=== PATIENT | male | born 1975 | race Two or more races ===

== ENCOUNTER 2022-03-06 08:52 | Outpatient (REF) | payer SELFPAY | END 2022-03-06 08:53 | disposition home or self-care (01) | LOC: HO.HOSX 08:52 | PROVIDERS: Visit Provider Physician Assistant | DX: Z13.89 Encounter for screening for other disorder (principal) ==

== ENCOUNTER 2023-02-26 09:59 | Outpatient (AMB) | payer OTHER, SELFPAY ==
--- NOTE | 2023-02-26 10:53 | MHC.OFFVIS ---
Intake Vital Signs 02/26/23 10:58 Height 5 ft 6 in Weight 178 lb 8 oz BMI 28.8 BP 170/114 H Blood Pressure Location Rt brachial Position Standing Pulse 89 Pulse Source Pulse Oximeter Pulse Oximetry (%) 99 Oxygen Delivery Method Room Air Intake Visit Reasons: (R) Sacroiliac Joint Pain Intake Note: Pain today 02/24 Inside [employer] Required: No Accompanied by: Self / Same As Patient Allergies No Known Allergies Allergy (Unverified 02/02/20 16:05) HPI (R) Sacroiliac Joint Pain HPI Details Patient is a pleasant 48 years old male with history of lumbar degenerative disc and joint disease, lumbar spinal stenosis and sacroiliac joint disease, presents today for initial evaluation of acute on chronic low back pain radiating into his right lower extremity. Denies any recent trauma, injury or falls. Reports sudden onset of spinal-stenosis related pain 3 days ago with minimal to no tolerance for sitting or prolonged walking. He is standing in flex forward posture most of today's visit as well as standing and changing his positioning frequently in the waiting area. Back exam was limited today due to significant exacerbation of pain. Back pain is increased with flexion or extension with radiation of pain into his right buttock, lateral hip and into anterior and medial thigh and right lateral leg with weakness and dizziness, numbness and tingling in his thigh. SLR testing is positive on the right and is worsened with dorsiflexion. Patient also has tenderness in the projection of right SIJ area with positive provocative testing. Coughing and sneezing increases his pain. Patient reports he completed lumbar spine MRI in 2020 and was evaluated [address] Mckeon at [facility] and undergone what he believes right sacroiliac joint injection that provided him pain relief up until now. He was referred to our office by his PCP for right SIJ injection. Patient reports pain affects his daily functioning, ADLs, mobility, movements, sleep, work and quality of life. He is out of work until next Thursday due to pain. Denies any recent cough, cold, infection, fever or other significant changes in medical history since last office visit. Patient denies any bladder or bowel incontinence or saddle anesthesia. Location Right lower back radiates into RLE anteriorly, laterally and medial thigh Duration Chronic pain for many years, recent acute on chronic exacerbation Characteristics of symptom or complaint Aching, burning, stabbing, shooting, squeezing, cramping, numbness, sharp Aggravating or associated factors Driving, sitting, changing positions Relieving factors Rest, standing, Tylenol, NSAIDs, heat therapy Treatment PT- 9 years ago- no improvement, back injection in 2020-good relief [facility] Medical History (Updated 02/26/23 @ 14:36 by BENJAMIN Thompson) Sacroiliac joint pain Lumbar degenerative disc disease Rheumatism Arthritis Review of Systems Const All systems reviewed & are unremarkable except as noted in HPI and below Neuro Denies Sensory deficit (Neuro) Physical Exam Vital Signs: Last Vital Signs Pulse 89 02/26/23 10:58 BP 170/114 H 02/26/23 10:58 Pulse Ox 99 02/26/23 10:58 Oxygen Delivery Method Room Air 02/26/23 10:58 BMI result Body Mass Index 28.8 General: Appears afebrile. Alert and oriented. Mood and affect appropriate. Follows and participates in conversation appropriately. Respiratory effort is unlabored. No cough. Able to transition from sit to stand unassisted. Ambulates with normal heel strike and toe off on the left, and difficulty on the right due to pain. Back/Spine/Pelvis Other: Limited lumbar ROM due to pain. Flexion and extension exacerbates low back and RLE pain. Can flex forward to 50-60 degrees and extend to 5-10 degrees before experiencing lumbar pain, worse pain with bending or flexion. Demonstrates 5/5 left and 3-4/5 right strength of quadriceps bilaterally as well as 5/5 left and 4/5 right due to pain flexion/dorsiflexion of bilateral feet against resistance. 2+ pedal pulses bilaterally. Seated straight leg rise with dorsiflexion positive on the right. +2 left +1 right patellar and +1 achilles reflexes bilaterally. Facet loading test positive bilaterally. Han sign, Cesar?s, Pelvic compression and Stinchfield tests are positive on the right. No groin pain with I/E hip rotations. Valsalva maneuver reproduces back and right leg pain. Cervical Spine: cervical ROM normal and No Cervical spine tenderness Thoracic/Lumbar Spine: thoracic and lumbar spine normal to inspection, No Thoracic/lumbar spine scar(s), Lasegue's sign positive on the right and localized, pain with thoraco-lumbar ROM, paraspinal muscle tenderness on the right greater than left, thoraco-lumbar ROM limited, No thoracic spinal tenderness and lumbar spinal tenderness at L4 and at L5 Pelvis: buttock tenderness on the right Sacroiliac joints: on the right tender to palpation and on the left nontender Neuro Gait exam (Neuro): Antalgic gait present and No Assistive device used Motor exam (neuro): no tremor noted and Motor abnormalities not present Sensory Exam: No Sensory deficit (Neuro) Results Reviewed Results Reviewed: MR LUMBAR SPINE WITHOUT IV CONTRAST 01/07/21 at [facility] CLINICAL INFORMATION: Low back pain radiating to the right side. COMPARISON: Lumbar spine radiographs 07/29/2017. TECHNIQUE: MRI of the lumbar spine was obtained using routine sequences without contrast. 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 Please correlate with plain films prior to any percutaneous or surgical intervention. Grade 1 retrolisthesis of L3 on L4 and L4 on L5. Lumbar alignment is otherwise maintained. There is no bone marrow edema. There are no acute fractures. Disc volumes are preserved and discs remain well-hydrated. Conus terminates at the L2 level. There are no significant extraspinal soft tissue findings. The L1-L2 and the L2-L3 disc contours are normal. There is no central canal stenosis and there is no foraminal stenosis at these levels. L3-L4: Grade 1 retrolisthesis. Left paracentral/left lateral disc protrusion results in mass effect on the traversing left L4 nerve root within the left subarticular zone and moderate left foraminal stenosis with mild mass effect on the exiting left L3 nerve root. L4-L5: Grade 1 retrolisthesis. Diffuse annular disc bulge with a superimposed left lateral disc protrusion associated with an annular fissure severe bilateral facet arthropathy and ligamentum flavum thickening. Findings in concert result in moderate to severe central canal stenosis, lateral subarticular zone stenosis with mass effect on the traversing L5 nerve roots bilaterally, and mild bilateral foraminal encroachment. L5-S1: At the transitional level, the disc contour is normal. There is no central canal stenosis and there is no foraminal stenosis. 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 Please correlate with plain films prior to any percutaneous or surgical intervention. - At L4-L5, grade 1 retrolisthesis and advanced multifactorial degenerative changes result in moderate to severe central canal stenosis, lateral subarticular zone stenosis with mass effect on the traversing L5 nerve roots bilaterally, and mild bilateral foraminal encroachment. - At L3-L4, there is grade 1 retrolisthesis and a left paracentral/left lateral disc protrusion results in mass effect on the traversing left L4 nerve root within the left subarticular zone and moderate left foraminal stenosis with mild mass effect on the exiting left L3 nerve root on image 19 of series 8. Assessment & Plan Assessment & Plan (1) Lumbar radiculopathy: Code(s): M54.16 - Radiculopathy, lumbar region (2) Lumbar spinal stenosis: Code(s): M48.061 - Spinal stenosis, lumbar region without neurogenic claudication (3) Muscle spasm of back: Code(s): M62.830 - Muscle spasm of back (4) Lumbar degenerative disc disease: Code(s): M51.36 - Other intervertebral disc degeneration, lumbar region (5) Sacroiliac joint pain: Code(s): M53.3 - Sacrococcygeal disorders, not elsewhere classified Plan Lumbar spine imaging to assess degree of degenerative changes, any subluxation, listhesis, compression fractures or pars defects. MRI of the lumbar spine to assess for neural integrity and compression and follow up on previous lumbar spine MRI findings. For spinal stenosis related pain and previous findings for L4-L5 moderate to severe central canal stenosis with significant lumbar DDD, will proceed with re-evaluation by Dr. Mckeon. Patient is aware to call if pain worsens or if he develops any red flag symptoms to seek emergency care. Patient denies any cauda equina syndrome symptoms at this time. Scripts for cyclobenzarine, prednisone and short script of oxycodone sent for acute on chronic low back pain with right radiculopathy symptoms. Side effects and precautions reviewed with patient. All questions were answered and the patient is in agreement with the treatment plan. Follow up for lumbar spine imaging results or sooner if needed Orders: Orders MR lumbar spine wo con Today M48.061 - Spinal stenosis, lumbar region without neurogenic claudication, M54.16 - Radiculopathy, lumbar region, M62.830 - Muscle spasm of back XR lumbar spine 6V w bending Today M48.061 - Spinal stenosis, lumbar region without neurogenic claudication, M54.16 - Radiculopathy, lumbar region, M62.830 - Muscle spasm of back Referrals Neurosurgery Referral M48.061 - Spinal stenosis, lumbar region without neurogenic claudication, M54.16 - Radiculopathy, lumbar region Medications: New cyclobenzaprine 10 mg PO BEDTIME PRN 30 tabs 0RF muscle spasm M48.061 - Spinal stenosis, lumbar region without neurogenic claudication, M54.16 - Radiculopathy, lumbar region, M62.830 - Muscle spasm of back oxycodone Partial Fill upon patient request. 5 mg PO Q8H 5 days PRN 15 tabs 0RF pain M48.061 - Spinal stenosis, lumbar region without neurogenic claudication, M54.16 - Radiculopathy, lumbar region, M62.830 - Muscle spasm of back prednisone 40 mg (2 x 20 mg) PO DAILY 5 days 10 tabs 0RF pain M48.061 - Spinal stenosis, lumbar region without neurogenic claudication, M54.16 - Radiculopathy, lumbar region Coding Level of Care Code Est Pt Level 4 (61421) Diagnoses Lumbar radiculopathy M54.16 Lumbar spinal stenosis M48.061 Muscle spasm of back M62.830 Lumbar degenerative disc disease M51.36 Sacroiliac joint pain M53.3
[2023-02-26 10:58] VITALS: BP 170/114; PULSE 89; O2SAT 99; BMI 28.8
== END 2023-02-26 11:23 | disposition home or self-care (01) ==
PROVIDERS: PCP Internal Medicine; Visit Provider Nurse Practitioner Family
DX: M54.16 Radiculopathy, lumbar region (principal); M48.061 Spinal stenosis, lumbar region without neurogenic claudication; M62.830 Muscle spasm of back; M51.36 Other intervertebral disc degeneration, lumbar region; M53.3 Sacrococcygeal disorders, not elsewhere classified
CPT/HCPCS: 99214

== ENCOUNTER → 2023-02-26 09:59 | Outpatient (BNVA) | payer OTHER, SELFPAY | PROVIDERS: PCP Internal Medicine; Visit Provider Nurse Practitioner Family ==

== ENCOUNTER 2023-03-05 10:27 | Emergency (ER) | payer OTHER, SELFPAY ==
--- NOTE | ~2023-03-05 | XR_ITS ---
EXAMINATION: XR LUMBOSACRAL SPINE CLINICAL INFORMATION: Right upper leg numbness and paresthesia COMPARISON: None available. TECHNIQUE: Three views of the lumbosacral spine. FINDINGS: The vertebral bodies and posterior elements are normal. There is a transitional lumbosacral vertebra. The disc spaces are preserved and the vertebral alignment is normal. The paraspinal soft tissues are normal. XR/XR lumbar spine 2-3V IMPRESSION: Unremarkable examination.
--- NOTE | ~2023-03-05 | XR_ITS ---
EXAMINATION: XR HIP, RIGHT CLINICAL INFORMATION: Hip COMPARISON: None available. TECHNIQUE: A frontal radiograph of the pelvis and frontal and frog lateral radiographs of the right hip were acquired. FINDINGS: No fracture. Alignment is anatomic. Hip joint space is maintained. Soft tissues are unremarkable. The bony sacrum and sacroiliac joints are unremarkable. XR/XR hip RT w PEL1V IMPRESSION: Unremarkable plain radiographs of the right hip.
[2023-03-05 11:26] VITALS: BP 139/105; PULSE 121; RESP 18; TEMP 36.2; O2SAT 99; BMI 29.0
--- NOTE | 2023-03-05 11:26 | ED.LOWEXIN ---
HPI - Extremity Injury (Lower) General Chief Complaint: Extremity Problem Stated Complaint: r leg pain Time Seen by Provider: 03/05/23 13:09 Source: patient Mode of arrival: ambulatory Limitations: no limitations History of Present Illness HPI Narrative: Patient is a 48-year-old male with history of lumbar degenerative disc disease and lumbar spinal stenosis presenting to the emergency department with exacerbation of right lower back pain for the past several weeks. He recently saw pain management and was prescribed cyclobenzaprine, prednisone and oxycodone which he reports minimally improved his symptoms. He reports he was also seen at [facility] emergency department 2 days ago and had x-rays of his right knee which were unremarkable. His current complaint is pain to right anterior and lateral thigh. Describes as a burning/spasming. States yesterday this pain began to radiate up towards his groin area. He denies dysuria, penile discharge, rash, erythema, or swelling to genitals. He reports he felt as though he was having difficulty fully emptying his bladder while urinating. He denies any saddle anesthesia or bowel or bladder incontinence. Denies any fevers. Denies any recent falls or other trauma. Reports history of steroid injections in the past which were helpful in decreasing his pain. States that he has MRI scheduled for early March. complaint: other (Low back and leg pain) Onset (ago): week(s) Injury: Right: thigh Severity: severe Relieving factors: nothing Exacerbating factors: weight bearing Context: other (lumbar spinal stenosis and DDD) Associated symptoms: tingling Other symptoms: other (felt as though was unable to fully empty bladder when urinating) Treatments prior to arrival: NSAIDS and other Related Data Home Medications Medication Instructions Recorded Confirmed acetaminophen 500 mg tablet 500 mg PO QID PRN 02/26/23 (Tylenol Extra Strength) diclofenac sodium 75 mg 75 mg PO BID 02/26/23 tablet,delayed release Previous Rx's Medication Instructions Recorded cyclobenzaprine 10 mg tablet 10 mg PO BEDTIME PRN muscle spasm 02/26/23 #30 tabs oxycodone 5 mg tablet 5 mg PO Q8H PRN pain 5 days #15 02/26/23 tabs prednisone 20 mg tablet 40 mg (2 x 20 mg) PO DAILY pain 5 02/26/23 days #10 tabs diazepam 2 mg tablet 2 mg PO TID PRN muscle spasm #9 03/05/23 tabs lidocaine 5 % topical patch 1 patch topical DAILY #15 ea 03/05/23 naproxen 500 mg tablet 500 mg PO BID #30 tabs 03/05/23 Allergies Allergy/AdvReac Type Severity Reaction Status Date / Time No Known Allergies Allergy Unverified 02/02/20 16:05 Review of Systems Review of Systems: As per HPI. Yes all other systems are reviewed and are negative Constitutional: Constitutional: Reports as per HPI [facility] Past Medical History Medical History (Updated 03/05/23 @ 17:59 by Miley Lucero NP) Sacroiliac joint pain Lumbar degenerative disc disease Rheumatism Arthritis Social History Social History Smoked in Last 30 Days: No Use of substances other than those prescribed or required for medical reasons: No Advance Directives: No Physical Exam Vital Signs: Vital Signs: Last Vital Signs Temp 98.1 F 03/05/23 15:13 Pulse 76 03/05/23 15:13 Resp 18 03/05/23 15:13 BP 145/102 H 03/05/23 15:13 Pulse Ox 99 03/05/23 15:13 O2 Del Method Room Air 03/05/23 15:13 BMI result Body Mass Index 29.0 Vital signs have been reviewed and appear to be correct. Blood pressure elevated. Heart rate normal. Respiratory rate normal. Temperature normal. Oxygen saturation normal. Const: General: cooperative, healthy appearing and no acute distress Orientation/consciousness: oriented to person, oriented to place, oriented to time and patient oriented x3 Limitations: no limitations HEENT: Head: Yes normocephalic and Yes atraumatic Ears: external ears normal General nose exam: Normal external nose present Face and sinus: Yes face symmetric Mouth: oropharynx normal and moist mucous membranes Throat: Yes uvula midline Eyes: Pupils: Equal, round and reactive pupils present Neck: Neck: Yes normal visual inspection and Yes supple Resp: Effort & Inspection: normal respiratory effort and able to speak in complete sentences Auscultation: clear to auscultation bilaterally Cardio: Rate: regular rate Rhythm: regular rhythm Heart sounds: S1 normal heart sound present and S2 normal heart sound present GI: Palpation (GI): Soft to palpation and nontender Auscultation: normoactive bowel sounds : General: Yes no CVA tenderness Back/Spine/Pelvis: Back: no CVA tenderness Cervical Spine: normal cervical lordosis, cervical ROM normal and No Cervical spine tenderness Thoracic/Lumbar Spine: thoracic and lumbar spine normal to inspection, No Thoracic/lumbar spine scar(s), Lasegue's sign positive on the right, pain with thoraco-lumbar ROM, paraspinal muscle tenderness on the right, No thoracic spinal tenderness, lumbar spinal tenderness at L4 and at L5 and straight leg raise positive right Pelvis: no pain with anterior-posterior compression and no pain with lateral compression Sacroiliac joints: on the right tender to palpation Skin: General skin exam: elasticity normal and turgor normal Neuro: General: oriented to person, oriented to place, oriented to time, patient oriented x3, moves all extremities, no focal motor deficits and CN's II-XI intact bilaterally Cranial nerves: Yes Equal, round and reactive pupils present Cognition (Neuro): normal cognition Motor exam (neuro): Abnormal motor strength present right proximal lower extremity flexion 4 / 5 Sensory Exam: Normal double simultaneous stimulation for sensation Extrem: General: Yes full ROM, Yes no pedal edema and Yes no calf tenderness Right lower extremity: hip/thigh Details: normal to inspection, normal ROM and other (spasming noted to quadriceps muscle); no swelling and foot Details: vascular exam Details: dorsalis pedis pulse present and posterior tibial pulse present Psych: Mental Status: mental status grossly normal Affect: normal affect Thought process: Normal thought process present Course Course Course Narrative: RME: 48yo M w/PMHx lumbar radiculopathy complaining of right thigh pain described as burning/numbness x3 weeks. patient was seen at [facility] ED 2 days had knee x-rays which were unremarkable, was prescribed Prednisone, Oxycodone, and Flexeril without relief. Also reports dysuria & urinary hesitancy. denies incontinence Lumbar/hip x-ray and UA ordered Full HPI, ROS and PE to be performed by primary ED provider. Medications Administered Discontinued Medications Generic Name Dose Route Start Last Admin Trade Name Freq PRN Reason Stop Dose Admin Diazepam 5 mg 03/05/23 15:15 03/05/23 15:53 Diazepam 10 Mg/2 Ml Cartridge IM 03/05/23 15:16 5 mg STAT STA Administration Medical Decision Making Medical Decision Making [facility] Narrative: Patient is a 48-year-old male with history of lumbar degenerative disc disease and lumbar spinal stenosis presenting to the emergency department with exacerbation of right lower back pain for the past several weeks. On exam patient is awake, A+Ox3, BP elevated likely secondary to pain, VS otherwise WNL, afebrile, physical exam findings as above. Given reported symptoms and physical exam findings, initial differential includes progression of degenerative disc disease, lumbar radiculopathy, muscle spasm, retrolisthesis, spondylosis. No red flag findings concerning for cord compression, cauda equina, spinal epidural abscess. No evidence of infection on UA. X-ray notable for no acute abnormalities. My interpretation is in agreement with the radiologist's interpretation. Bladder scan obtained immediately following voiding with result of 60mL. Case discussed with Dr. Batres who agrees MRI is not indicated at this time. Patient medicated with IM diazepam for spasm in the emergency department. Patient reports improvement in symptoms after diazepam. Will prescribe short course for patient at home. Review of [employer] shows only one recent prescription for oxycodone prescribed by pain management provider. Will also prescribe naproxen as he states he has run out of Tylenol and ibuprofen. Will prescribe topical lidocaine patches. Precautions and side effects of medications discussed with patient at bedside. All results discussed with patient and all questions answered. Instructed patient to keep follow-up appointments with specialists. Strict return precautions discussed at bedside. Patient verbalized understanding of and agreement with plan. Differential Diagnosis Differential Diagnoses: The differential diagnosis associated with the presentation includes As per [facility]. Lab Data [facility] Lab Attestation statement: I reviewed the patient's lab results. As per [facility]. Labs: Lab Results 03/05/23 Range/Units 14:34 Urine Color Yellow Urine Appearance Clear Urine pH 6.0 (5.0-9.0) Ur Specific [place] 1.015 (1.005-1.025) Urine Protein Negative (Neg-Trace) mg/dL Urine Glucose (UA) Negative (Negative) mg/dL Urine Ketones Negative (Negative) mg/dL Urine Blood Negative (Negative) Urine Nitrite Negative (Negative) Ur Leukocyte Esterase Negative (Negative) Independent Interpretation I performed an independent interpretation of an: Plain X-Ray Interpretation: No acute abnormalities on hip/pelvis or lumbar x-rays. Radiology Impression Discussion of test interpretation with radiology: I have reviewed the radiologist's reading. Radiologist Impression: XR/XR lumbar spine 2-3V IMPRESSION: Unremarkable examination. XR/XR hip RT w PEL1V IMPRESSION: Unremarkable plain radiographs of the right hip. External Record Review External record reviewed: Inpatient record, Office record, Outpatient record and Prior outpatient radiology Tests considered The following testing was considered but not selected: Considered MRI but not indicated at this time Prescription Management I considered prescription management with: Pain Medication and Other Chronic Conditions Patient?s care impacted by: Other (lumbar DDD, spinal stenosis) Discharge Plan Discharge Clinical Impression: Lumbar radiculopathy, Muscle spasm of right leg Patient Disposition: Home, Self-Care Instructions: Lumbar Radiculopathy (ED), Muscle Spasm (ED) Additional Instructions: You were evaluated in the emergency department today for back pain. Your evaluation did not show signs of medical conditions requiring emergent intervention at this time. You are being prescribed naproxen to decrease inflammation, please take this medication as prescribed. You have been prescribed diazepam for muscle spasms. This medication can make you drowsy so you should not take it while operating heavy machinery or driving a vehicle, you should not combine this medication with alcohol. You have been prescribed 5% topical lidocaine patches which you can wear for up to 12 hours in a 24 hour period. Do not apply heat directly over the patches. Please schedule an appointment for follow-up with your primary care physician this week for further evaluation of your symptoms. Please keep your scheduled appointments with your specialists. Return to the emergency department if you experience worsening back pain, difficulty walking, fevers, numbness, tingling, incontinence, groin numbness or tingling, or any other concerning symptoms. Prescriptions: New lidocaine 5 % adhesive patch,medicated 1 patch topical DAILY Qty: 15 0RF Rx Instructions: leave on most painful area for up to 12 hrs naproxen 500 mg tablet 500 mg PO BID Qty: 30 0RF diazepam 2 mg tablet 2 mg PO TID PRN (Reason: muscle spasm) Qty: 9 0RF No Action diclofenac sodium 75 mg tablet,delayed release (DR/EC) 75 mg PO BID acetaminophen [Tylenol Extra Strength] 500 mg tablet 500 mg PO QID PRN prednisone 20 mg tablet 40 mg PO DAILY 5 Days Qty: 10 0RF cyclobenzaprine 10 mg tablet 10 mg PO BEDTIME PRN (Reason: muscle spasm) Qty: 30 0RF oxycodone 5 mg tablet 5 mg PO Q8H PRN (Reason: pain) 5 Days Qty: 15 0RF Rx Instructions: Partial Fill upon patient request. Stand Alone Forms: Work/School Release
[2023-03-05 14:47] LABS: Appearance Urine Clear; Color Urine Yellow; Glucose Urine UA Negative (Negative); Leukocyte Esterase Urine Negative (Negative); Nitrite Urine Negative (Negative); Specific Gravity - Urine 1.015 (1.005-1.025); Urine Blood Negative (Negative); Urine Ketones Negative (Negative); Urine Protein Negative (Neg-Trace)
[2023-03-05 15:13] VITALS: BP 145/102; PULSE 76; RESP 18; TEMP 36.7; O2SAT 99
[2023-03-05] MEDS: diazePAM 10 MG/2 ML CARTRIDGE 5 MG IM (15:53)
== END 2023-03-05 18:12 | disposition home or self-care (01) ==
PROVIDERS: Physician Assistant; Emergency Provider Emergency Medicine Emergency Medical Services; PCP Internal Medicine
DX: M54.16 Radiculopathy, lumbar region (principal); M62.838 Other muscle spasm; M79.604 Pain in right leg
CPT/HCPCS: 72100; 73502; 81003; 96372; 99284; J3360

== ENCOUNTER 2025-04-04 09:00 | Outpatient (REF) | payer OTHER, SELFPAY ==
[2025-04-04 11:00] LABS: Alanine Aminotransferase 30 U/L (0-40); Albumin Level 4.4 g/dL (3.5-5.0); Alkaline Phosphatase 73 U/L (39-117); Anion Gap 12 (12-20); Aspartate Amino Transferase 71 U/L (5-37); Blood Urea Nitrogen 11 mg/dL (9-16); Calcium 9.5 mg/dL (8.4-10.2); Carbon Dioxide 24 mmol/L (22-29); Chloride 106 mmol/L (96-108); Cholesterol 198 mg/dL (<200); Estimated Glomerular Filt Rate > 60; HDL Cholesterol 34 mg/dL (>40); Potassium 3.7 mmol/L (3.3-5.1); Sodium 138 mmol/L (135-145); Total Protein 7.3 g/dL (6.5-8.0); Triglycerides 413 mg/dL (<150)
[2025-04-04 11:07] LABS: Hematocrit 46.0 % (42.0-52.0); Hemoglobin 16.1 g/dl (14.0-18.0); Imm Gran Abs Auto 0.06 X10*3/uL (0.00-0.03); Imm Gran Pct Auto 0.5 % (0.0-0.4); Lymphocytes Absolute Auto 5.9 X10*3/uL (1.2-4.9); MANUAL DIFF FLAG SCAN; Mean Corpuscular HGB Conc 35.0 g/dl (31.0-36.0); Mean Corpuscular Hemoglobin 30.7 pg (27.0-33.0); Mean Corpuscular Volume 87.8 fL (80.0-98.0); NRBC Abs Auto 0.000 X10*3/uL (0.0-0.012); NRBC Pct Auto 0.0 /100WBC (0.0-0.2); Platelet Count 323 X10*3/uL (160-400); Red Blood Count 5.24 X10*6/uL (4.60-5.80); SCAN SMEAR FLAG 1; White Blood Count 12.8 X10*3/uL (4.8-10.8)
[2025-04-05 12:19] LABS: Rubeola IgG (Measles) 82.90 AU/mL
== END 2025-04-04 09:01 | disposition home or self-care (01) ==
LOC: HO.10HDL 09:00
PROVIDERS: Visit Provider Internal Medicine
DX: Z00.00 Encounter for general adult medical examination without abnormal findings (principal); Z01.84 Encounter for antibody response examination; E78.2 Mixed hyperlipidemia; I10 Essential (primary) hypertension; M54.16 Radiculopathy, lumbar region; Z68.30 Body mass index [BMI] 30.0-30.9, adult
CPT/HCPCS: 36415; 80053; 80061; 85025; 86735; 86762; 86765